=== PATIENT | female | born 1990 ===

== ENCOUNTER 2021-01-25 11:42 | Outpatient (CLI) | payer OTHER | END 2021-01-25 11:43 | disposition home or self-care (01) | LOC: CSHLAB 11:42 | PROVIDERS: ATTEND Obstetrics & Gynecology | DX: Z01.812 Encounter for preprocedural laboratory examination (principal); Z20.822 Contact with and (suspected) exposure to COVID-19; N80.0 Endometriosis of uterus; N92.0 Excessive and frequent menstruation with regular cycle; D64.9 Anemia, unspecified | CPT/HCPCS: 84703; 85027; 86850; 86900; 86901; 87635; U0003; U0005 ==